=== PATIENT | female | born 1970 | race Caucasian/White ===

== ENCOUNTER → 2019-07-19 16:08 | Outpatient (CLI) | payer OTHER, SELFPAY ==
--- NOTE | ~2019-07-19 | XR_ITS ---
EXAMINATION: XR foot LT min 3V DATE: 07/19/2019 16:59 INDICATION: Left foot pain TECHNIQUE: Dorsoplantar, lateral, and 2 oblique views of the left foot were obtained. COMPARISON: None. FINDINGS: There is no fracture, dislocation, or subluxation. Mild osteoarthritis is noted at the firs t metatarsophalangeal joint. Soft tissues are unremarkable. IMPRESSION: 1. No acute osseous abnormality. Reviewed, dictated and finalized at location [facility]. [facility]
== END ==
PROVIDERS: PCP Family Medicine; Visit Provider Chiropractor Rehabilitation
DX: M79.672 Pain in left foot (principal)
CPT/HCPCS: 73630

== ENCOUNTER 2021-07-24 00:22 | Day surgery (SDC) | payer OTHER, BC, SELFPAY ==
[2021-07-20 11:03] VITALS: BMI 31.2
[2021-07-24 08:11] VITALS: BP 140/63; PULSE 80; RESP 19; TEMP 36.6; O2SAT 98
[2021-07-24] MEDS: LACTATED RINGERS 1,000 ML 150 ML IV CONT (08:19)
--- NOTE | 2021-07-24 08:21 | WPDANESEPPF ---
Anes - Initial Pre Proc Eval Procedure: Operation Date: 07/24/21 09:00 Proposed Procedures p Screening Colonoscopy - Donaldo Winter MD Date/Time: 07/24/21 08:21 Surgeon: Donaldo Winter MD Pre Op Diagnosis: neoplasm screening Patient Data Age: 51 Gender: F Height: 1.6 m Weight: 70.8 kg Last Vital Signs Temp 36.6 C 07/24/21 08:11 Pulse 80 07/24/21 08:11 Resp 19 07/24/21 08:11 BP 140/63 07/24/21 08:11 Pulse Ox 98 07/24/21 08:11 Allergies Allergy/AdvReac Type Severity Reaction Status Date / Time ampicillin Allergy Intermediate Rash Verified 07/24/21 08:09 Home Medications Medication Instructions Recorded Confirmed Type levonorgestrel 20 mcg/24 hours (7 1 device I-UTERINE ONCE 08/30/19 07/24/21 History yrs) 52 mg intrauterine device multivitamin 1 tablet PO DAILY 08/30/19 07/24/21 History gabapentin 300 mg capsule 300 mg PO TID 05/19/21 07/24/21 History lamotrigine 100 mg tablet 100 mg PO BID 05/19/21 07/24/21 History Estroven Cmplt Menopause Rlf 1 tab-cap PO HS 07/20/21 07/24/21 History bupropion HCl 150 mg PO BID 07/20/21 07/24/21 History carbamazepine 200 mg PO TID 07/20/21 07/24/21 History loratadine [Wal-itin] 10 mg PO DAILY 07/20/21 07/24/21 History sertraline 100 mg PO BID 07/20/21 07/20/21 History sumatriptan succinate 100 mg PO PRN PRN 07/20/21 07/20/21 History Patient hx anesthesia problems: none Family hx anesthesia problems: none Results Review: All pre-operative results and documents have been reviewed as part of the pre-operative evaluation. [facility] Past Medical History Medical History Depression Migraine aura without headache Trigeminal neuralgia Surgical History Surgical History History of arthroscopic surgery of elbow (~1997) Family History Family History Grandparent Diabetes mellitus Father Depression Hypertension Grandparent Diabetes mellitus Sibling Depression Social History Social History Smoking packs per day: 1.5 Smoking cigarettes per day: 30.0 Years smoked: 20 Smoking pack-years: 30.00 Smoking status: Former smoker Tobacco type: cigarettes Smoking end date: 06/06/05 Alcohol intake: current Substance use: never Substance use type: does not use Living arrangements: with family Spiritual care concerns: No Anes - Eval Final PreProcedure Day of Procedure 07/24/21 08:21 Patient weight: overweight Heart: regular rate and rhythm Lungs: clear to auscultation Airway: Mallampati scale class II Neurological: alert and oriented Last oral intake: >/= 8 hours ASA classification: II Emergent: no Anesthetic plan: proceed Anesthesia type and monitoring: general GIVS and standard monitoring Results Review: All pre-operative results and documents have been reviewed as part of the pre-operative evaluation. Informed Consent: The patient's anesthetic plan and its attendant risks and benefits were discussed with the patient/family/POA. Questions were solicited and answers provided to the satisfaction of the patient/family/POA.
--- NOTE | 2021-07-24 08:38 | PM.HPGS ---
History of Present Illness History of Present Illness Consent: Risks, benefits, and alternatives have been discussed and questions answered. Patient agrees to proceed with procedure. Chief complaint: neoplasm screening Narrative: Miryam Phillips is a 51 year old female here for first screening colonoscopy Review of Systems Constitutional: Constitutional: Denies headache(s) and Denies weakness Eyes: Eyes: Denies blurry vision ENT: Reports Normal hearing present, Denies headache(s) and Denies neck pain Cardiovascular: Cardiovascular: Denies chest pain and Denies dyspnea Respiratory: Respiratory: Denies dyspnea Gastrointestinal: Gastrointestinal: Reports no additional gastrointestinal complaints Genitourinary: Genitourinary: Denies dysuria Musculoskeletal: Musculoskeletal: Denies neck pain Integumentary/Breasts: Skin/Breast: Denies dry skin Neurologic: Reports Normal hearing present, Denies headache(s) and Denies weakness Psychiatric: Psychiatric: Denies anxiety Endocrine: Endocrine: Denies change in body appearance Hematologic/Lymphatic: Hematologic/Lymphatic: Denies easy bleeding Allergic/Immunologic: Allergic/Immunologic: Denies urticaria PMF Past Medical History Medical History (Updated 07/24/21 @ 08:39 by Donaldo Winter MD) Colon cancer screening Depression Migraine aura without headache Trigeminal neuralgia Surgical History Surgical History History of arthroscopic surgery of elbow (~1997) Family History Family History Grandparent Diabetes mellitus Father Depression Hypertension Grandparent Diabetes mellitus Sibling Depression Social History Social History Smoking packs per day: 1.5 Smoking cigarettes per day: 30.0 Years smoked: 20 Smoking pack-years: 30.00 Smoking status: Former smoker Tobacco type: cigarettes Smoking end date: 06/06/05 Alcohol intake: current Substance use: never Substance use type: does not use Living arrangements: with family Spiritual care concerns: No Meds Home Medications and Allergies Home Medications Medication Instructions Recorded Confirmed Type levonorgestrel 20 mcg/24 hours (7 1 device I-UTERINE ONCE 08/30/19 07/24/21 History yrs) 52 mg intrauterine device multivitamin 1 tablet PO DAILY 08/30/19 07/24/21 History gabapentin 300 mg capsule 300 mg PO TID 05/19/21 07/24/21 History lamotrigine 100 mg tablet 100 mg PO BID 05/19/21 07/24/21 History Estroven Cmplt Menopause Rlf 1 tab-cap PO HS 07/20/21 07/24/21 History bupropion HCl 150 mg PO BID 07/20/21 07/24/21 History carbamazepine 200 mg PO TID 07/20/21 07/24/21 History loratadine [Wal-itin] 10 mg PO DAILY 07/20/21 07/24/21 History sertraline 100 mg PO BID 07/20/21 07/20/21 History sumatriptan succinate 100 mg PO PRN PRN 07/20/21 07/20/21 History Allergies Allergy/AdvReac Type Severity Reaction Status Date / Time ampicillin Allergy Intermediate Rash Verified 07/24/21 08:09 Vital Signs Vital Signs - 24 hr 07/24/21 08:11 Temperature 97.8 F Pulse Rate 80 Respiratory Rate 19 Blood Pressure 140/63 Pulse Oximetry 98 Exam Const: General: comfortable and no acute distress HENMT: General nose exam: Normal nares present Eyes: General: appearance normal, both eyes and all related structures Neck: Neck: no JVD Resp: Auscultation: clear to auscultation bilaterally Cardio: Rate: regular rate Rhythm: regular rhythm GI: Inspection: non-distended GI Palp: Yes Soft to palpation Skin: General skin exam: normal color Neuro: General: gait normal Speech: normal speech Extrem: General: normal to inspection Psych: Mental Status: mental status grossly normal Assessment and Plan Assessment and plan (1) Colon cancer screening: Code(s): Z12.11 - [place]
[2021-07-24 09:04] VITALS: BP 117/58; PULSE 70; RESP 19; O2SAT 100
[2021-07-24 09:14] VITALS: BP 117/67; PULSE 66; RESP 19; O2SAT 100
[2021-07-24 09:22] VITALS: BP 125/69; PULSE 64; RESP 19; O2SAT 100
== END 2021-07-24 09:33 | disposition home or self-care (01) ==
PROVIDERS: PCP Family Medicine; Visit Provider Internal Medicine Gastroenterology
PROC: 0DJD8ZZ Inspection of Lower Intestinal Tract, Via Natural or Artificial Opening Endoscopic (ICD-10-PCS; CPT 45378; principal; 2021-07-24 09:00)
DX: Z12.11 Encounter for screening for malignant neoplasm of colon (principal); K64.8 Other hemorrhoids; F32.9 Major depressive disorder, single episode, unspecified; G43.909 Migraine, unspecified, not intractable, without status migrainosus; G50.0 Trigeminal neuralgia; Z87.891 Personal history of nicotine dependence
CPT/HCPCS: 45378; J2001; J2704; J7120

== ENCOUNTER 2021-11-29 12:31 | Emergency (ER) | payer OTHER, BC, SELFPAY ==
--- NOTE | ~2021-11-29 | XR_ITS ---
EXAMINATION: XR foot RT min 3V DATE: 11/29/2021 12:52 INDICATION: Right foot pain, initial encounter TECHNIQUE: Dorsoplantar, lateral, and 2 oblique views of the right foot were obtained. COMPARISON: None. FINDINGS: There is small acute, traumatic, closed, oblique intra-articular fracture at the medial bas e of the fifth middle phalanx. There is soft tissue swelling of the fifth toe. There is moderate poly articular osteoarthritis of multiple interphalangeal joints. Mild osteoarthritis is noted at the firs t metatarsophalangeal joint. IMPRESSION: 1. Small intra-articular fracture at the medial base of the fifth middle phalanx. Reviewed, dictated and finalized at location A. IMPRESSION: 1. Small intra-articular fracture at the medial base of the fifth middle phalan x.
[2021-11-29 12:40] VITALS: BP 151/78; PULSE 87; RESP 18; TEMP 37.2; O2SAT 99
--- NOTE | 2021-11-29 13:10 | ED.LOWEXIN ---
HPI - Extremity Injury (Lower) General Chief Complaint: Extremity Injury, Lower Stated Complaint: rt foot injury Time Seen by Provider: 11/29/21 13:03 Source: patient Mode of arrival: ambulatory Limitations: no limitations History of Present Illness HPI Narrative: Patient presents today complaining of right fifth toe injury that was sustained yesterday when she is off while trying to board a pontoon boat. She currently rates her pain 2/10 at rest, but increases when she weightbears. She has tried ice and I often with mild relief. Denies numbness or tingling. Related Data Home Medications Medication Instructions Recorded Confirmed levonorgestrel 20 mcg/24 hours (7 1 device intrauterine ONCE 08/30/19 11/29/21 yrs) 52 mg intrauterine device (Mirena) multivitamin 1 tablet PO DAILY 08/30/19 11/29/21 gabapentin 300 mg capsule 300 mg PO TID 05/19/21 11/29/21 lamotrigine 100 mg tablet 100 mg PO BID 05/19/21 11/29/21 Estroven Cmplt Menopause Rlf 1 tab-cap PO HS 07/20/21 11/29/21 carbamazepine 200 mg tablet 200 mg PO TID 07/20/21 11/29/21 loratadine 10 mg tablet (Wal-itin) 10 mg PO DAILY 07/20/21 11/29/21 sertraline 100 mg tablet 100 mg PO BID 07/20/21 11/29/21 sumatriptan succinate 100 mg tablet 100 mg PO DIRECTED 07/20/21 07/20/21 bupropion HCl 150 mg tablet,12 hr 150 mg BID 11/29/21 sustained-release Allergies Allergy/AdvReac Type Severity Reaction Status Date / Time ampicillin Allergy Intermediate Rash Verified 11/29/21 13:01 Review of Systems Review of Systems: CONSTITUTIONAL: Denies body aches, fever, chills, or sweats. EYES: Denies visual changes, redness, or discharge. ENT: Denies rhinorrhea, congestion, sore throat, or otalgia. CARDIOVASCULAR: Denies chest pain, palpitations, or edema. RESPIRATORY: Denies cough or dyspnea. GASTROINTESTINAL: Denies abdominal pain, nausea, vomiting, or diarrhea. GENITOURINARY: Denies dysuria or hematuria. SKIN: Denies rash, itching, or wounds. MUSCULOSKELETAL: Denies back pain, or myalgia.+ Right fifth toe injury NEUROLOGIC: Denies headache, numbness, tingling, or weakness. PSYCH: Denies depression or anxiety. [facility] Past Medical History Medical History Colon cancer screening Depression Migraine aura without headache Trigeminal neuralgia Surgical History Surgical History History of arthroscopic surgery of elbow (~1997) Family History Family History Grandparent Diabetes mellitus Father Depression Hypertension Grandparent Diabetes mellitus Sibling Depression Social History Social History Smoking packs per day: 1.5 Smoking cigarettes per day: 30.0 Years smoked: 20 Smoking pack-years: 30.00 Smoking status: Former smoker Tobacco type: cigarettes Smoking end date: 06/06/05 Alcohol intake: current Substance use: never Substance use type: does not use Spiritual care concerns: No Comments At time of signature, I have reviewed and agree with nursing past medical, surgical, social and family history unless otherwise noted. Please see nursing chart for further information. There is no relevant family history pertinent to the presenting complaint Exam Narrative: GENERAL: Well-appearing, well-nourished, and in no acute distress. HEAD: Normocephalic, atraumatic. EYES: EOMI. No redness or drainage. Conjunctivae normal. ENT: Mucous membranes pink and moist. NECK: Normal AROM. CHEST: No respiratory distress. EXTREMITIES: Right fifth toe: Tenderness with mild edema about the toe. Patient has moderate ecchymosis at the base of the toe. Distal sensation intact. Capillary refill normal. Decreased range of motion due to pain. No other toes affected. Foot is nontender. Pedal pulse normal. SKIN
== END 2021-11-29 13:22 | disposition home or self-care (01) ==
PROVIDERS: Emergency Provider Nurse Practitioner; PCP Family Medicine
DX: S92.524A Nondisplaced fracture of middle phalanx of right lesser toe(s), initial encounter for closed fracture (principal); W17.89XA Other fall from one level to another, initial encounter; F32.A Depression, unspecified; Z87.891 Personal history of nicotine dependence
CPT/HCPCS: 73630; 99214; G0463

== ENCOUNTER 2024-11-14 14:18 | Emergency (ER) | payer BC, SELFPAY ==
[2024-11-14 14:22] VITALS: BP 149/62; PULSE 80; RESP 16; TEMP 36.2; O2SAT 99
--- NOTE | 2024-11-14 14:22 | ED_ITS ---
HPI - URI/Sore Throat General Chief Complaint: Upper Respiratory Infection Stated Complaint: Upper Respiratory Infection Time Seen by Provider: 11/14/24 14:35 Source: patient Mode of arrival: ambulatory Limitations: no limitations History of Present Illness HPI Narrative: Karen is a 54-year-old female patient presenting to the clinic today with complaints of sore throat due to cough, cough, sinus congestion/pressure, fever, and chest congestion x2 weeks. Is coughing up some clear to yellow phlegm and some. Had fever at the begin the illness-highest was 101. Denies any chest pain but does feel short of breath on exertion. She vapes nicotine. Related Data Home Medications ?Medication ?Instructions ?Recorded ?Confirmed ?Last Taken ?Type levonorgestrel (Mirena) 1 device intrauterine ONCE 08/30/19 06/17/23 07/23/21 History multivitamin 1 tablet PO DAILY 08/30/19 06/17/23 07/23/21 History Estroven Cmplt Menopause Rlf 1 tab-cap PO HS 07/20/21 06/17/23 07/23/21 History loratadine 10 mg tablet (Wal-itin) 10 mg PO DAILY 07/20/21 06/17/23 07/23/21 History sumatriptan succinate 100 mg tablet 100 mg PO DIRECTED 07/20/21 06/17/23 Unknown History Allergies Allergy/AdvReac Type Severity Reaction Status Date / Time ampicillin Allergy Intermediate Rash Verified 11/14/24 14:28 Review of Systems Review of Systems: Pertinent positives per HPI. Patient denies any fever, chills, rash, headache, visual changes, dizziness, chest pain, palpitations, nausea, vomiting, diarrhea, constipation, abdominal pain, or any urinary issues. [facility] Past Medical History Medical History (Updated 11/14/24 @ 14:37 by Bakari Lucero APRN) Colon cancer screening Depression Trigeminal neuralgia Migraine aura without headache Surgical History Surgical History S/P foot surgery, right History of arthroscopic surgery of elbow (~1997) Family History Family History Grandparent Diabetes mellitus Father Depression Hypertension Grandparent Diabetes mellitus Sibling Depression Social History Social History Smoking packs per day: 1.5 Smoking cigarettes per day: 30.0 Years smoked: 20 Smoking pack-years: 30.00 Smoking status: Former smoker Tobacco type: cigarettes Smoking end date: 06/06/05 Alcohol intake: current Substance use: never Substance use type: does not use Lack of Transportation: No Lack of Food: Never True Current Housing: I Have Housing Concerned About Future Housing: No Difficulty Paying Gas/Electric Bills: No Difficulty Paying for Meds: No Currently Unemployed: No Education: Trade/Vocational Certificate Difficulty w/ Childcare or Family Care: No Living arrangements: with family Spiritual care concerns: No Comments At the time of my signature, I reviewed and agree with the nursing past medical, surgical, social, and family history. There is no relevant family history pertinent to the patient complaint. Exam Narrative: General: Well-developed, well nourished, in no apparent distress Head: Normocephalic, atraumatic Eyes: Pupils equally round and reactive to light bilaterally, EOM intact, sclera and conjunctive clear, no discharge, lids normal Ears: TMs intact and congested, ear canals clear, no drainage, grossly hearing normal. Nose: Nares patent, no discharge, moderate inflammation, maxillary sinus tenderness. Mouth: Oral pharynx red without lesions or masses, good dentition, MMM. Postnasal Neck: Supple, trachea midline, no enlargement of anterior or posterior cervical nodes, no thyroid masses or goiter palpable. Cardio: Regular rate and rhythm, s1 and s2 normal, no murmur appreciated. Resp: Diminished in the bases otherwise clear, no rhonchi, rales, wheezing or rubs Course Course Emergency Course: Portions of this record may have been created with voice recognition software. Level of Care: Express Care Visit Vital Signs Vital signs: Vital Signs Temperature 36.2 C L 11/14/24 14:22 Pulse Rate 80 11/14/24 14:22 Respiratory Rate 16 11/14/24 14:22 Blood Pressure 149/62 H 11/14/24 14:22 Pulse Oximetry 99 11/14/24 14:22 Oxygen Delivery Room Air 11/14/24 14:22 Temperature 36.2 C L 11/14/24 14:22 Pulse Rate 80 11/14/24 14:22 Respiratory Rate 16 11/14/24 14:22 Blood Pressure 149/62 H 11/14/24 14:22 Pulse Oximetry 99 11/14/24 14:22 Oxygen Delivery Room Air 11/14/24 14:22 Vital signs reviewed MDM - URI/Sore Throat MDM Narrative Medical decision making narrative: At the time of visit patient is resting comfortably on the exam table. Patient appears to be nontoxic. Plan: I suspect patient has sinusitis/bronchitis. Prescription for albuterol inhaler, prednisone, and doxycycline was sent to the pharmacy. Supportive measures were discussed with the patient and they voiced understanding discharge instructions and agrees to treatment plan. Return precautions reviewed Differential Diagnosis Differential diagnosis: Likely upper respiratory infection, otitis media, sinusitis, viral infection, bronchitis, influenza, pharyngitis and other (COVID) Discharge Plan Discharge Clinical Impression: Sinobronchitis Patient Disposition: Home Condition: Stable Instructions: Antibiotic Form, Sinusitis (ED), Acute Bronchitis (ED) Additional Instructions: Take prescription medications only as prescribed-albuterol inhaler, doxycycline, and prednisone Increase fluids and stay well hydrated Tylenol/motrin for pain/fever Flonase and OTC antihistamines as directed Vicks vapor rub to open sinuses Sinus rinses for congestion Cepacol spray, cough drops, throat lozenges, warm tea with honey/lemon, gargle salt water to soothe throat BRAT diet for diarrhea Clear liquids x 24 hours then advance as tolerated for nausea/vomiting Go to the ED if you develop a worsening in your condition- high fever not controlled by Tylenol or Motrin, dehydration, weakness, lethargy, shortness of breath, or chest pain. Follow up with your PCP in 3-5 days if symptoms persist. Patient Language: Vietnamese Prescriptions: New doxycycline monohydrate 100 mg capsule 100 mg PO BID 7 Days Qty: 14 0RF prednisone 20 mg tablet 40 mg PO DAILY 5 Days Qty: 10 0RF albuterol sulfate 90 mcg/actuation HFA aerosol inhaler 2 puff inhalation Q4-6H PRN (Reason: shortness of breath or wheezing) 30 Days Qty: 8.5 0RF No Action sumatriptan succinate 100 mg tablet 100 mg PO DIRECTED loratadine [Wal-itin] 10 mg Tablet 10 mg PO DAILY Estroven Cmplt Menopause Rlf 1 tab-cap PO HS Mirena 20 mcg/24 hours (5 yrs) 52 mg intrauterine device 1 device I-UTERINE ONCE Rx Instructions: as a single dose multivitamin Tablet 1 tablet PO DAILY gabapentin 300 mg capsule 300 mg PO TID Qty: 90 0RF carbamazepine 200 mg tablet 200 mg PO TID Qty: 90 0RF bupropion HCl 150 mg tablet sustained-release 12 hr 150 mg PO BID Qty: 180 3RF Rx Instructions: TAKE 1 TABLET BY MOUTH TWICE DAILY lamotrigine 100 mg tablet 100 mg PO BID Qty: 60 5RF sertraline 100 mg tablet 100 mg PO BID Qty: 180 1RF Follow-up/Referrals: Pete Castro MD [Primary Care Provider] - Time of Disposition: 14:39 Quality NIHSS Nursing Documentation ED NIHSS nursing documentation: reviewed/agree
--- OUTSIDE RECORDS SUMMARY | 2024-11-14 17:06 | XMS_ITS | Data Portability ---
Author Organization [facility] Address [address] [place] [address] Care Team Providers Care Phys Ther Name Role Phone ALICE MARSHALL Primary Care Provider [phone] Assessment Encounter Date Assessment Date Assessment LastModified by Organization Details LastModified Time 11/18/2021 11/18/2021 Annual gynecological exam performed. Patient will come back in a year unless there are new symptoms. [email or web address] Not available 11/18/2021 13:02:45 Plan of Treatment Reminders Order Date Submit Date Provider Last Modified By Organization Details Last Modified Time Details Appointments None recorded. Lab None recorded. Referral None recorded. Procedures None recorded. Surgeries None recorded. Imaging MAMMO, screening, digital, bilateral 2020 021 [facility], [address], [place], [address], 21:25:12 Medication Orders None recorded. Patient TargetsNo targets recorded. Patient InstructionsNo instructions recorded. Reason for Referral None Reported. Results Created Date Observation Date Name Description Value Unit Range Abnormal Flag Note LastModifiedBy Organization Detail LastModifiedTime 09/12/19 21 09/11/2020 pap, IG Pap test SEE RESULT S BELOW CASE REPOR T: Cytol ogy Gynec ologi clemencia Repor t Case: [id number] Autho michael sims Provi geoffrey: Tylor Barrett Colle cted: 09/11 1613 RN SHIFT MGR Order ing Locat ion: [place] [facility] Recei janay: 09/12 0631 First Scree n: Strut z, Ben am, CT Rescr een: Prema paz, Yenny chow, CT Speci men: Scree eunice Pap - Image d, Cervi x STATE MENT OF ADEQU ACY: Satis facto ry for evalu ation Trans forma tion zone compo nent prese nt FINAL DIAGN OSIS: Negat rush for Squam ous Intra epith elial Lesio n Elect macie cortez tracey d by Prema paz, Yenny chow, CT on 021 at 5:38 PM ----- ----- ----- ----- ----- ----- ----- ----- ----- ----- ----- ----- ----- ----- ----- ----- ----- ---- HPV RESUL TS: HPV mRNA E6/E7 : No HPV mRNA Detec nuris NOTE: This high risk HPV mRNA assay detec ts fourt een high- risk HPV types (16, 18, 31, 33, 35, 39, 45, 51, 52, 56, 58, 59, 66, 68) witho ut diffe renti ation . CHART ABLE COMME NT: Note: This speci men was revie wed by a Cytot echno logis t and/o r Patho logis t (as indic ated in this repor t) after evalu ation using the Thinp rep Imagi ng Syste m. CLINI CLEMENCIA INFOR MATIO N: Menst rual Statu s: LMP (if appli cable ): Clini clemencia Histo ry/Pr eviou s Pap: Type of Neopl alejo (if appli cable ): Other Histo ry: Hormo yesica (if appli cable ): PAP EDUCA LEW L NOTE: The Pap Test is a scree eunice test with an inher ent false negat rush rate. Liqui d-bas e sampl ing may decre ase, but will not elimi porfirio, false negat rush resul ts. A negat rush resul t does not precl ude the prese nce and/o r devel opmen t of disea se, since the prese nce of abnor mal cells in the sampl e depen ds on the locat ion of the lesio n and sampl ing techn ique. José Manuel nued regul ar scree eunice is the best metho d of cance r preve ntion . If repor nuris cytol ogic findi ng do not corre late with physi clemencia and/o r histo rical findi ngs, furth er inves tigat ion is recom scottie d, as clini josi andujar nted. Not Available [facility] (Lab) [address], [place], [address], 09/12/2020 18:39:58 11/19/19 22 11/18/2021 IMAGE GUIDE D PAP AND HPV REGAR DLESS image guided Pap, HPV regardless of Pap result SEE RESULT S BELOW CASE REPOR T: Cytol ogy Gynec ologi clemencia Repor t Case: [id number] Autho michael sims Provi geoffrey: Tylor Barrett Colle cted: 11/18 1545 RN SHIFT MGR Order ing Locat ion: [place] Patho [place] Recei janay: 11/19 0342 First Scree n: Lurdes Zapata , CT Rescr een: Prema paz, Yenny chow, CT Speci men: Scree eunice Pap - Image d, Cervi x STATE MENT OF ADEQU ACY: Satis facto ry for evalu ation Trans forma tion zone compo nent prese nt FINAL DIAGN OSIS: Negat rush for Intra epith elial Leshal n or Ashwini pereyra (NIL) . Effie cortez tracey d by Yenny Li, CT on 2021 at 2:03 PM ----- ----- ----- ----- ----- ----- ----- ----- ----- ----- ----- ----- ----- ----- ----- ----- ----- ---- HPV RESUL TS: HPV mRNA E6/E7 : No HPV mRNA Detec nuris NOTE: This high risk HPV mRNA assay detec ts fourt een high- risk HPV types (16, 18, 31, 33, 35, 39, 45, 51, 52, 56, 58, 59, 66, 68) witho ut diffe renti ation . COMME NT: Note: This speci men was revie wed by a Cytot echno logis t and/o r Patho logis t (as indic ated in this repor t) after evalu ation using the Thinp rep Imagi ng Syste m. CLINI CLEMENCIA INFOR MATIO N: Menst rual Statu s: LMP (if appli cable ): Clini clemencia Histo ry/Pr eviou s Pap: Type of Neopl alejo (if appli cable ): Signi fican t Clini clemencia Findi ngs: Other Histo ry: Hormo yesica (if appli cable ): PAP EDUCA LEW L NOTE: The Pap Test is a scree eunice test with an inher ent false negat rush rate. Liqui d-bas ed sampl ing may decre ase, but will not elimi porfirio, false negat rush resul ts. A negat rush resul t does not precl ude the prese nce and/o r devel opmen t of disea se, since the prese nce of abnor mal cells in the sampl e depen ds on the locat ion of the lesio n and sampl ing techn ique. José Manuel nued regul ar scree eunice is the best metho d of cance r preve ntion . If repor nuris cytol ogic findi ng do not corre late with physi clemencia and/o r histo rical findi ngs, furth er inves tigat ion is recom scottie d, as clini josi andujar nted. Not Available [facility] (Lab) [address], [place], [address], 11/23/2021 15:05:29 Result Notes None recorded. Problems Name Problem SNOMED Code Status Onset Date Resolution Date Notes Provider Name and Address Organization Details Recorded Time Finding of menstrua l bleeding Completed 201511/17/2021 Excessive and frequent menstruat ion with regular cycle;Pra ctice ID: 0001 Raysa byrd [facility] 2 17:45:45 Breast lump [id number] Completed 201511/17/2021 Unspecifi ed lump in breast;Pr actice ID: 0001 Raysa byrd, [facility] 2 17:45:45 Screenin g for malignan t neoplasm of rectum Completed 201511/17/2021 Encounter for screening for malignant neoplasm of rectum;Pr actice ID: 0001 Raysa byrd, [facility] 17:45:[address] Concept Completed 201511/17/2021 Encntr for tangible personal property appraiser exam (general) (routine) w/o abn findings; [facility] 0001 [facility] 17:45:45 Menstrua tion finding Completed 201411/17/2021 Menorrhag ia Excessive Menstruat ion;Pract ice ID: 0001 [facility] 17:45:45 Dyspareu dulce [id number] Completed 201411/17/2021 Dyspareun ia;Practi ce ID: 0001 [facility] 17:45:45 Screenin g for malignan t neoplasm of cervix Completed 201311/17/2021 Pap Smear;Pra ctice ID: 0001 [facility] 2 17:45:45 Speciali zed medical examinat ion Completed 201311/17/2021 Routine gynecolog ical examinati on;Practi ce ID: 0001 Raysa byrd [facility] 17:45:45 Adult health examinat ion Completed 201311/17/2021 Routine general medical examinati on at a health care facility; Practice ID: 0001 Raysa [facility] 2 17:45:45 Increase d frequenc y of urinatio n [id number] Completed 201311/17/2021 Urinary frequency ;Practice ID: 0001 Raysa Stewart [facility] 2 17:45:45 Pregnanc y test negative [id number] Completed 201511/17/2021 Encounter for test, result negative; Practice ID: 0001 Raysa Stewart [facility] 2 17:45:45 Finding of pattern of menstrua l cycle Completed 201511/17/2021 Other specified irregular menstruat ion;Pract ice ID: 0001 Raysa Stewart [facility] 2 17:45:45 Insertio n of intraute rine contrace ptive device Completed 201611/17/2021 Encounter for insertion of intrauter ine contracep tive device;Pr actice ID: 0001 aRysa [facility] 2 17:45:45 Contrace ptive sheath status [id number] Completed 201611/17/2021 Encounter for routine checking of intrauter ine contracep dev;Pract ice ID: 0001 Raysa [facility] 2 17:45:45 Atypical squamous cells of undeterm ined signific ance on cervical Papanico laou smear [id number] Completed 201111/17/2021 Papanicol aou smear of cervix with atypical squamous cells of undetermi addison significa nce (ASC-US); Recorded Elsewhere : No Locati on: [facility] So urce: EHR Chron ic: N Practic e ID: 0001 Bill able Time: 01:45:00 PM [facility] [address] 17:45:[address] Concept Completed 201511/17/2021 Encntr for general adult medical exam w/o abnormal findings; Recorded Elsewhere : No Locati on: [facility] So urce: EHR Chron ic: N Practic e ID: 0001 Bill able Time: 03:00:00 PM Raysa [facility] 2 17:45:45 Blood in urine [id number] Completed 201311/17/2021 HEMATURIA NOS;Recor ded Elsewhere : No Locati on: [facility] So urce: EHR Chron ic: N Practic e ID: 0001 Bill able Time: 11:29:53 AM Raysa [facility] 2 17:45:45 Dysfunct ional uterine bleeding Completed 201211/17/2021 Other disorders of menstruat ion and other abnormal bleeding from female genital tract;Rec orded Elsewhere : No Locati on: [facility] So urce: EHR Chron ic: N Practic e ID: 0001 Bill able Time: 01:00:00 PM Raysa [facility] 2 17:45:45 Microsco pic hematuri a [id number] Completed 201311/17/2021 HEMATURIA MICROSCOP IC;Practi ce ID: 0001 Raysa [facility] 2 17:45:45 Clinical finding Completed 201611/17/2021 Presence of (intraute rine) contracep tive device;Re corded Elsewhere : No Locati on: [facility] So urce: EHR Chron ic: N Practic e ID: 0001 Bill able Time: 08:00:00 AM Raysa [facility] 2 17:45:45 Problem Notes None recorded. Procedures Surgical History Date Name Laterality Status Provider Name and Address Organization Details Recorded Time Date of Last Pap Smear completed Raysa [facility] 11/18/2021 13:05:49 12/20/201 6 endometrial biopsy completed [facility] 11/18/2021 13:05:15 6 Date of Last Mammogram completed [facility] 11/18/2021 13:07:08 8 procedure on elbow completed Lara Sholaartem [facility] 09/11/2020 16:02:46 Other completed [facility] 11/18/2021 13:05:15 Imaging Results None recorded. Procedure Notes None recorded. Medical Equipment None Reported. Allergies Allergen ID Allergen Name Allergen Category Reaction Reaction Severity Criticality Documentation Date Start Date Code Code System Note Provider Name and Address Organization Details Recorded Time 46015 Product containin g penicilli n (product) medicatio n Not available Not available Not available 05/23/2020 19811 8001 SNOMED Comme nt: [facility]; Not Available [facility] 0 14:14:49 Medications Name Sig Start Date Stop Date Status Note LastModified by Organization Details LastModified Time Mirena 21 mcg/24 hr (up to 8 years) 52 mg intrauter ine device Take by intraute rine route. active Not Available Not Available No t Available bupropion HCl SR 150 mg tablet,12 hr sustained -release TAKE 1 TABLET BY MOUTH TWICE DAILY active Not Available Not Available No t Available prednison e 10 mg tablet TK 5 TS PO ON DAY 1 AND DECREASE BY 1 T EACH DAY UNTIL GONE. TAKE IN THE MORNING WF 09/11 completed Not Available Not Available Not Available benzonata te 200 mg capsule TAKE 1 CAPSULE BY MOUTH THREE TIMES DAILY NEEDED FOR COUGH 09/11 completed Not Available Not Available Not Available sumatript an 100 mg tablet active Not Available Not Available Not Available meloxicam 15 mg tablet TK 1 T PO QD 09/11 completed Not Available Not Available Not Available rizatript an 10 mg tablet TK 1 T PO AOS OF MIGRAINE . MAY REPEAT AFTER 2 H NEEDED. MAX 3 IN 24 H 09/11 completed Not Available Not Available Not Available sertralin e 100 mg tablet TAKE 1 TABLET BY MOUTH TWICE DAILY active Not Available Not Available No t Available Zoloft 20 mg/mL oral concentra te take 2.5 millilit er by oral route every day and mix with 4 oz. (1/2 cup) of water, contreras gui, lemon/li me soda, lemonade or orange juice ONLY 09/11 completed Prescrib ed Elsewher e: Yes Loca tion: Anita tompkins [facility] odify By: moi Linaresou nter DateTime : 04/03/20 11 02:26:39 PM Not Available Not Available Not Available Tegretol 100 mg/5 mL oral suspensio n take 5 millilit er by oral route every 6 hours 08/27 completed Prescrib ed Elsewher e: Yes Loca tion: Anita tompkins [facility] odify By: isabelle mujicauntbonifacio DateTime : 05/05/20 16 01:45:00 PM Not Available Not Available Not Available sulfameth oxazole 800 mg-trimet hoprim 160 mg tablet TAKE 1 TABLET BY MOUTH EVERY 12 HOURS 11/18 completed Not Available Not Available Not Available carbamaze pine 200 mg tablet active Not Available Not Available No t Available Lamictal 25 mg tablet take 2 tablet by oral route 2 times every day 09/11 completed Prescrib ed Elsewher e: Yes Loca tion: Anita tompkins [facility] odify By: bonita kign DateTime : 05/22/20 14 08:15:00 AM Not Available Not Available Not Available Wellbutri n 75 mg tablet take 1 tablet by oral route 3 times every day 09/11 completed Prescrib ed Elsewher e: Yes Loca tion: Anita [facility] odify By: moi Davies nter DateTime : 04/03/20 11 02:26:39 PM Not Available Not Available Not Available Advair Diskus 500 mcg-50 mcg/dose powder for inhalatio n INHALE 1 PUFF BY MOUTH EVERY 12 HOURS 09/11 completed Not Available Not Available Not Available gabapenti n 300 mg capsule TAKE 1 CAPSULE BY MOUTH THREE TIMES DAILY active Not Available Not Available No t Available Vitamin D2 1,250 mcg (50,000 unit) capsule take 1 capsule by oral route every week 08/27 completed Prescrib ed Elsewher e: No Locat ion: Anita tompkins [facility] odify By: carly walters DateTime : 05/22/20 14 08:15:00 AM Not Available Not Available Not Available lamotrigi ne 100 mg tablet TAKE 1 TABLET BY MOUTH TWICE DAILY active Not Available Not Available No t Available sumatript an 6 mg/0.5 mL subcutane ous pen injector INJ 6MG SC AT ONSET OF MIGRAINE . MAY REPEAT ONCE AFTER 1 HOUR IF NEEDED. MAX OF 2 IN 24 H 09/11 completed Not Available Not Available Not Available Vitamins and Minerals tablet active Prescrib ed Elsewher e: Yes Loca tion: Anita tompkins [facility] odify By: bridgette mujicabonifacio DateTime : 10/11/19 12 01:45:00 PM Not Available Not Available Not Available nitrofura ntoin monohydra te/macroc rystals 100 mg capsule TAKE ONE CAPSULE BY MOUTH EVERY 12 HOURS 11/18 completed Not Available Not Available Not Available Lyrica 25 mg capsule take 2 capsule by oral route 3 times every day 08/27 completed Prescrib ed Elsewher e: Yes Loca [facility]ion: [facility] odify By: carly mujicabonifacio DateTime : 05/22/20 14 08:15:00 AM Not Available Not Available Not Available Lysteda 650 mg tablet take 2 tablet by oral route 3 times every day during menses 09/11 completed Prescrib ed Elsewher e: No Locat ion: Anita [facility] odify By: moi Davies nter DateTime : 05/05/20 16 01:45:00 PM Not Available Not Available Not Available Aleve 220 mg capsule active Not Available Not Available Not Available gabapenti n 250 mg/5 mL (5 mL) oral solution take 6 millilit er by oral route 3 times every day 09/11 completed Prescrib ed Elsewher e: Yes Loca tion: Anita [facility] odify By: isabelle mujicaunter DateTime : 05/05/20 16 01:45:00 PM Not Available Not Available Not Available 24Hour Allergy 10 mg tablet active Not Available Not Available Not Available Vitals Date Recorded Systolic blood pressure Diastolic blood pressure Provider Name and Address Organization Details Last Updated DateTime 11/18/2021 122 mm[Hg] 76 mm[Hg] Tami Herrmann, [facility]- [address], [place], [address], [facility] 11/18/2021 14:16:28 Date Recorded Body height Body mass index (BMI) Body weight Provider Name and Address Organization Details Last Updated DateTime 11/18/2021 160.02 cm 28.1 kg/m2 24187.75 g Raysa [facility] 11/18/2021 13:04:35 Social History Question Answer Notes LastModified by Organizat ion Details LastModified Time Tobacco Smoking Status Never Smoker Raysa Stewart [facility] 11/18/2021 13:05:11 Do You Have An Advance Directive? No Information n ot available 11/18/2021 Are You Blind Or Do You Have Difficulty Seeing? No Information n ot available 11/18/2021 What Is Your Level Of Caffeine Consumption? Moderate Information not available 11/18/2021 How Much Tobacco Do You Chew? None Information not available 11/18/2021 In The 14 Days Before Symptom Onset, Have You Had Close Contact With A Laboratory-confirm ed COVID-19 While That Case Was Ill? Yes Information n ot available 11/18/2021 In The 14 Days Before Symptom Onset, Have You Had Close Contact With A Person Who Is Under Investigation For COVID-19 While That Person Was Ill? Yes Information not available 11/18/2021 Have You Been To An Area Known To Be High Risk For COVID-19? Yes Information not available 11/18/2021 Are You Deaf Or Do You Have Serious Difficulty Hearing? No Information not available 11/18/2021 What Type Of Diet Are You Following? REGULAR Information n ot available 11/18/2021 What Is The Highest Grade Or Level Of School You Have Completed Or The Highest Degree You Have Received? [id number] Information not available 11/18/2021 Are There Any Guns Present In Your Home? Yes Information not available 11/18/2021 Have You Ever Been Counseled For Unhealthy Alcohol Use? No Information not available 11/18/2021 Do You Use Protection During Sex? Always Information not available 11/18/2021 Do You Use Your Seat Belt Or Car Seat Routinely? Yes Information not available 11/18/2021 Do You Have Smoke And Carbon Monoxide Detectors In Your Home? Yes Information not available 11/18/2021 How Much Tobacco Do You Smoke? No Information not available 11/18/2021 Do You Use Sunscreen Routinely? Yes Information not available 11/18/2021 Have You Used IV Drugs? No Information not available 11/18/2021 Do You Have Difficulty Walking Or Climbing Stairs? No Information not available 11/18/2021 Sex: Unknown Functional Status Question Answer Note LastModified by Organizat ion Details LastModified Time Do you use any illicit or recreational drugs? No Information not available 09/11/2020 Do you or have you ever used any other forms of tobacco or nicotine? No Information not available 11/18/2021 What is your level of alcohol consumption? Occasional Information not available 09/11/2020 Are you able to walk? YESWOREST Information not available 11/18/2021 Are you able to care for yourself? 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 No Information not available 11/18/2021 What is your exercise level? None Information not available 11/18/2021 Mental Status Question Answer Note LastModified by Organization D etails LastModified Time Do you feel stressed (tense, restless, nervous, or anxious, or unable to sleep at night)? [id number] Information not available 11/18/2021 Family History Relationship Description Onset Age of this Age Resolved Age Notes LastModified by Organization Details LastModified Time Father Hypertensive disorder [email or web address] Not available 2020 16:03:03 Father Depressive disorder Not available 2021 13:04:46 Sister Depressive disorder [email or web address] Not available 2020 16:03:35 Sister Anxiety disorder Not available 2021 13:04:46 Paternal Grandfather Depressive disorder Not available 2021 13:04:46 Daughter Anxiety disorder [email or web address] Not available 2020 16:03:42 Medical History Condition Response Allergies (Food, seasonal, environmental ) Y Other N Breast Cancer N Drug/Latex Allergies/Reactions N Blood Transfusion N Dermatologic Disorders N Lung Disease N Defects or Inherited Disease N Breast Problem N Gestational Diabetes N Hematologic disorders N Anesthesia Complications N History of STI N Deep Vein Thrombosis N Polycystic ovary syndrome N Anxiety Disorder N Autoimmune disease N Arthritis N Infertility N Polyps N Acid Reflux (GERD) N History of abnormal pap N Cancer N Stroke N Varicosities N Neurologic/Epilepsy Y Endometriosis N High Cholesterol N Headaches Y Fibromyalgia N Kidney Disease N Heart Problems N Kidney or Bladder Problems N Thyroid Problems N GI Problems N Eating Disorder N Anemia Y Art (IVF or FET) N Psychiatric Illness N Ovarian Cancer N Diabetes N Pulmonary (TB, Asthma) N Hepatitis/Liver Disease N No Past Medical History N Eczema N Urinary Tract Infection N Abuse/Domestic Violence N Asthma N Trauma/Violence N Depression/ depression Y Heart Disease N Pre-Eclampsia N Hypertension N Osteoporosis N Thrombophilias N Gynecological History Statement/Question Response Abnormal Pap N Date of Last Mammogram 07/11/2015 On BCP's at Conception? N Was last menstrual period normal N STIs/STDs N Duration of Flow (days) 5 Current Control Method IUD Age at First Child 19 Frequency of Cycle (Q days) 29 Sexually Active? Y Menses Monthly N Age of first menstrual cycle 14 Date of Last Pap Smear 09/11/2020 Sexual Problems? Y LMP Unknown N Obstetrics History GPAL:G 5 P 0 0 2 3 Type Value Spontaneous 2 Living 3 Total 5 Past Encounters Encounter ID Performer Location Encounter Start Date Encounter Closed Date Diagnosis/Indication Diagnosis SNOMED-CT Code Diagnosis ICD10 Code Diagnosis Note [id number] [facility] [address] [address] 09/11/2020 15:46:39 09/11/2020 17:01:36 Gynecologic examination 91724129 Z01.419 Suggested Calcium with Vitamin D 1200-1500m g daily. Patient advised to get an annual flu shot in the fall and she could obtain at [facility] or [facility] care clinic. Also to obtain TDap vaccinatio n if you have not had one in the last 10 years. Recommend yearly mammograms . Encouraged monthly self breast exams. Encourage safe sexual practices, to use condoms and limit partners if not already in a monogamous relationsh ip. Engage in daily exercise of low impact aerobic exercise 45-60 minutes 4-5 times weekly. Avoid tobacco and illicit drugs as well as using moderation with alcohol intake less than 1-2 8 oz beverages daily. This lifestyle behavior pattern will lead to less health conditions and longer life span. If BMI greater than 25 weight watchers or dietary consult advised. All questions have been answered. Patient appears to understand informatio n, but if you have any questions please call or respond to this email. Pap/hpv updated mammo ordered No issues or concerns STD screen declined Screening mammography 24 [id number] Z12.31 [facility] ion care management 112780484 Z30.9 Mirena IUD placed 08/18/2016 for heavy menses. [id number] Tami Herrmann , [facility] [address] [address] 11/18/2021 12:34:43 11/18/2021 14:31:31 Gynecologic examination [id number] Z01.419 Suggested Calcium with Vitamin D 1200-1500m g daily. Patient advised to get an annual flu shot in the fall and she could obtain at [facility] or [facility] care clinic. Also to obtain TDap vaccinatio n if you have not had one in the last 10 years. Recommend yearly mammograms . Encouraged monthly self breast exams. Encourage safe sexual practices, to use condoms and limit partners if not already in a monogamous relationsh ip. Engage in daily exercise of low impact aerobic exercise 45-60 minutes 4-5 times weekly. Avoid tobacco and illicit drugs as well as using moderation with alcohol intake less than 1-2 8 oz beverages daily. This lifestyle behavior pattern will lead to less health conditions and longer life span. If BMI greater than 25 weight watchers or dietary consult advised. All questions have been answered. Patient appears to understand informatio n, but if you have any questions please call or respond to this email. Pap/hpv sentSTD Screen declinedGe netic Screen discussedC olon Screen UTD PCPDexa Screen naRoutine Labs UTD PCPmammo ordered Health Concerns Section Related Observation LastModified by Organization Detai ls LastModified Time None Recorded Concern Status LastModified by Organization Details LastModified Time None Recorded Advance Directives Directive N: Payers Encounter Date Sequence Insurance Name Policy Number Policy Randhawa Covered Member ID Randhawa Member ID Guarantor Name 09/11/2020 1 [facility] [id number] Miryam Phillips [id number] Miryam Phillips 11/18/2021 1 [facility] [id number] Miryam Phillips [id number] Miryam Phillips 11/18/2021 2 [facility] (O) [id number] Rigoberto Allen Alan [id number] iMryam Phillips Notes Date Note Type Note Provider Name and Address Organization Details Recorded Time 09/11/2020 text/html Annual GYNReport ed bypatient.History: no gynecologic complaints Menstrual cycle:amenorrheic on IUD Urinary symptoms:No hematuria; No incontinence Vulva:No genital lesion Vagina:Normal vaginal discharge Breast:No breast pain; No breast lump; No nipple discharge Current Contraception:Sati sfied with current contraception; Monogamous relationship; Intrauterine device (iud) Sexual complaints:No sexual complaints; No pain during intercourse; Normal libido Menopausal Symptoms:No menopausal symptoms; Normal vaginal lubrication Psychological symptoms:No depression; No anxiety; No PMDD Preventive measures:Encourage self breast examination; Encourage regular exercise; Encourage no tobacco use; Encourage regular mammograms starting age 40; Followed with Q3 year pap smear and high risk HPV typing; Needs to schedule mammogram; Needs to schedule colonoscopy (See's PCP) Tami Herrmann, AUDELIA- [address], [place], [address], [facility] 09/11/2020 16:45:56 11/18/2021 text/html Annual GYNReport ed bypatient.Menstrua l cycle:Normal menses Urinary symptoms:No hematuria; No incontinence Vulva:No genital lesion Vagina:Normal vaginal discharge Breast:No breast pain; No breast lump; No nipple discharge Sexual complaints:No sexual complaints; No pain during intercourse; Normal libido Menopausal Symptoms:No menopausal symptoms; Normal vaginal lubrication Psychological symptoms:No depression; No anxiety; No PMDD Preventive measures:Encourage self breast examination; Encourage regular exercise; Encourage no tobacco use; Encourage regular mammograms starting age 40; Followed with Q3 year pap smear and high risk HPV typing; Needs to schedule mammogram; Up to date on colonoscopy screening Tami Herrmann, [facility]- [address], [place], [address], [facility] 11/18/2021 14:18:41 OBGyn Episode Ob Episode Information Episode Created Date Number of Fetuses Patient Bloodtype Patient rh Status Prepregnancy Weight lbs Domestic Partner Domestic Partner Phone Father Name Methods Specialist Status 09/12/19 21 1 CLOSED Fetus Data First Name Last Name Admitted to NICU Weight (g) Sex Living Outcome Pediatric Complications Fetus ID Race Codes Race Delivery Type , Spontane ous [id number] Andrei Calculation Initial Andrei Date Initial Exam Date Initial Exam Provider Initial Ultrasound Date Last Menstrual Period Date Ultra Sound Weeks Gestation 0 Eighteen To Twenty Week Andrei Update Ultra Sound Date Fundal Height At Umbil Quickening Date Ultra Sound Latest Weeks Gestation Final Andrei Confirmed By Final Andrei Confirmed Date Final Andrei Date Ultra Sound Latest Days Gestation 0 0 Menstrual History Last Menstrual Date Menses Monthly On Bcp Conception Prior Menses Frequency Hcg Plus Date Menarche Onset Age Delivery Information Delivery Date Delivery Type Labor Anesthesia Weeks Gestation Incision Type Labor Labor Length Hrs Delivered By Post Complications Tubal Sterilization Discharge Date Comments 6 Discharge Information Feeding Method Contraceptive Method Maternal HG B and HCT Levels Ob Episode Information Episode Created Date Number of Fetuses Patient Bloodtype Patient rh Status Prepregnancy Weight lbs Domestic Partner Domestic Partner Phone Father Name Methods Specialist Status 09/12/19 21 1 CLOSED Fetus Data First Name Last Name Admitted to NICU Weight (g) Sex Living Outcome Pediatric Complications Fetus ID Race Codes Race Delivery Type , Induced [id number] Andrei Calculation Initial Andrei Date Initial Exam Date Initial Exam Provider Initial Ultrasound Date Last Menstrual Period Date Ultra Sound Weeks Gestation 0 Eighteen To Twenty Week Andrei Update Ultra Sound Date Fundal Height At Umbil Quickening Date Ultra Sound Latest Weeks Gestation Final Andrei Confirmed By Final Andrei Confirmed Date Final Andrei Date Ultra Sound Latest Days Gestation 0 0 Menstrual History Last Menstrual Date Menses Monthly On Bcp Conception Prior Menses Frequency Hcg Plus Date Menarche Onset Age Delivery Information Delivery Date Delivery Type Labor Anesthesia Weeks Gestation Incision Type Labor Labor Length Hrs Delivered By Post Complications Tubal Sterilization Discharge Date Comments 7 Discharge Information Feeding Method Contraceptive Method Maternal HG B and HCT Levels Ob Episode Information Episode Created Date Number of Fetuses Patient Bloodtype Patient rh Status Prepregnancy Weight lbs Domestic Partner Domestic Partner Phone Father Name Methods Specialist Status 09/12/19 21 1 CLOSED Fetus Data First Name Last Name Admitted to NICU Weight (g) Sex Living Outcome Pediatric Complications Fetus ID Race Codes Race Delivery Type 3628.73 6 M Full Term 8928 Vaginal Delivery Andrei Calculation Initial Andrei Date Initial Exam Date Initial Exam Provider Initial Ultrasound Date Last Menstrual Period Date Ultra Sound Weeks Gestation 0 Eighteen To Twenty Week Andrei Update Ultra Sound Date Fundal Height At Umbil Quickening Date Ultra Sound Latest Weeks Gestation Final Andrei Confirmed By Final Andrei Confirmed Date Final Andrei Date Ultra Sound Latest Days Gestation 0 0 Menstrual History Last Menstrual Date Menses Monthly On Bcp Conception Prior Menses Frequency Hcg Plus Date Menarche Onset Age Delivery Information Delivery Date Delivery Type Labor Anesthesia Weeks Gestation Incision Type Labor Labor Length Hrs Delivered By Post Complications Tubal Sterilization Discharge Date Comments 5 41 Discharge Information Feeding Method Contraceptive Method Maternal HG B and HCT Levels Ob Episode Information Episode Created Date Number of Fetuses Patient Bloodtype Patient rh Status Prepregnancy Weight lbs Domestic Partner Domestic Partner Phone Father Name Methods Specialist Status 09/12/19 21 1 CLOSED Fetus Data First Name Last Name Admitted to NICU Weight (g) Sex Living Outcome Pediatric Complications Fetus ID Race Codes Race Delivery Type 3089.86 8704 M Full Term 8929 Vaginal Delivery Andrei Calculation Initial Andrei Date Initial Exam Date Initial Exam Provider Initial Ultrasound Date Last Menstrual Period Date Ultra Sound Weeks Gestation 0 Eighteen To Twenty Week Andrei Update Ultra Sound Date Fundal Height At Umbil Quickening Date Ultra Sound Latest Weeks Gestation Final Andrei Confirmed By Final Andrei Confirmed Date Final Andrei Date Ultra Sound Latest Days Gestation 0 0 Menstrual History Last Menstrual Date Menses Monthly On Bcp Conception Prior Menses Frequency Hcg Plus Date Menarche Onset Age Delivery Information Delivery Date Delivery Type Labor Anesthesia Weeks Gestation Incision Type Labor Labor Length Hrs Delivered By Post Complications Tubal Sterilization Discharge Date Comments 9 38 placenta abruption ,GDM Discharge Information Feeding Method Contraceptive Method Maternal HG B and HCT Levels Ob Episode Information Episode Created Date Number of Fetuses Patient Bloodtype Patient rh Status Prepregnancy Weight lbs Domestic Partner Domestic Partner Phone Father Name Methods Specialist Status 09/12/19 21 1 CLOSED Fetus Data First Name Last Name Admitted to NICU Weight (g) Sex Living Outcome Pediatric Complications Fetus ID Race Codes Race Delivery Type 3997.05 2704 M Full Term 8927 Vaginal Delivery Andrei Calculation Initial Andrei Date Initial Exam Date Initial Exam Provider Initial Ultrasound Date Last Menstrual Period Date Ultra Sound Weeks Gestation 0 Eighteen To Twenty Week Andrei Update Ultra Sound Date Fundal Height At Umbil Quickening Date Ultra Sound Latest Weeks Gestation Final Andrei Confirmed By Final Andrei Confirmed Date Final Andrei Date Ultra Sound Latest Days Gestation 0 0 Menstrual History Last Menstrual Date Menses Monthly On Bcp Conception Prior Menses Frequency Hcg Plus Date Menarche Onset Age Delivery Information Delivery Date Delivery Type Labor Anesthesia Weeks Gestation Incision Type Labor Labor Length Hrs Delivered By Post Complications Tubal Sterilization Discharge Date Comments 0 40 Discharge Information Feeding Method Contraceptive Method Maternal HG B and HCT Levels
== END 2024-11-14 14:41 | disposition home or self-care (01) ==
PROVIDERS: Emergency Provider Nurse Practitioner Family; PCP Family Medicine
DX: J32.9 Chronic sinusitis, unspecified (principal); J40 Bronchitis, not specified as acute or chronic; F32.A Depression, unspecified
CPT/HCPCS: 99213; G0463